=== PATIENT | female | born 1940 | race Two or more races ===

== ENCOUNTER 2019-10-23 21:42 | Emergency (ER) | payer SELFPAY ==
[2019-10-23] MEDS ORDERED: NITROGLYCERIN SINGLE TAB 0.4 MG SL PRN (22:00)
[2019-10-23] MEDS ORDERED: ONDANSETRON 2MG/ML, 2ML IVPush ONE (22:00)
[2019-10-23] MEDS ORDERED: PLEASE ENTER ALLERGIES MC SCH (22:00)
[2019-10-23] MEDS ORDERED: PLEASE ENTER HEIGHT AND WEIGHT MC SCH (22:00)
[2019-10-23] MEDS ORDERED: ONDANSETRON 2MG/ML, 2ML ONE (22:01)
[2019-10-23] MEDS ORDERED: FUROSEMIDE 40 MG/4 ML ONE (22:01)
[2019-10-24] MEDS ORDERED: FUROSEMIDE 40 MG/4 ML ONE (00:42)
[2019-10-24] MEDS ORDERED: ACETAMINOPHEN 650 MG/20.3 ML UDC ONE (00:42)
== END 2019-10-23 22:08 ==
LOC: ED 22:02
DX: I50.9 Heart failure, unspecified (principal); Z53.21 Procedure and treatment not carried out due to patient leaving prior to being seen by health care provider